=== PATIENT | male | born 1960 | race Two or more races ===

== ENCOUNTER 2024-09-05 08:09 | Emergency (ER) | payer OTHER, SELFPAY ==
[2024-09-05 08:13] VITALS: BP 156/80; PULSE 57; RESP 17; TEMP 37.2; O2SAT 96; BMI 29.9
--- NOTE | 2024-09-05 08:18 | PD.EDANIML ---
ED Animal Bite RME/HPI General Chief Complaint: Animal Bite Stated Complaint: DOG BITE Time Seen by Provider: 09/05/24 08:14 Arrival date/time: 09/05/24 08:09 64-year-old male with medical history significant for hypertension presents to the emergency department today with complaints of dog bite to left lower leg Limitations: no limitations Related Data Home Medications ?Medication ?Instructions ?Recorded ?Confirmed amlodipine 10 mg tablet 10 mg PO QDAY 05/28/21 05/28/21 amoxicillin 500 mg capsule 500 mg PO BID 05/28/21 05/28/21 carvedilol 6.25 mg tablet 6.25 mg PO BID 05/28/21 05/28/21 clarithromycin 500 mg 500 mg PO QDAY 05/28/21 05/28/21 tablet,extended release 24 hr furosemide 20 mg tablet 20 mg PO QDAY 05/28/21 05/28/21 losartan 50 mg tablet 100 mg PO QDAY 05/28/21 05/28/21 omeprazole 40 mg capsule,delayed 40 mg PO QDAY 05/28/21 05/28/21 release Previous Rx's ?Medication ?Instructions ?Recorded amoxicillin 875 mg-potassium 1 tab PO BID 5 days #10 tabs 09/05/24 clavulanate 125 mg tablet ibuprofen 600 mg tablet 600 mg PO Q6H #30 tabs 09/05/24 Allergies Allergy/AdvReac Type Severity Reaction Status Date / Time No Known Allergies Allergy Verified 05/28/21 13:39 Review of Systems Review of Systems Systems Reviewed: All systems reviewed, normal except as documented Constitutional Constitutional: Reports system reviewed and no additional complaints, except as documented, Denies fever(s) and Denies headache(s) Eyes Eyes: Reports system reviewed and no additional complaints, except as documented and Denies blurry vision ENT Ears, Nose, Mouth, and Throat: Reports system reviewed and no additional complaints, except as documented, Denies headache(s), Denies nasal congestion and Denies nasal discharge Cardiovascular Cardiovascular: Reports system reviewed and no additional complaints, except as documented, Denies chest pain and Denies dyspnea Respiratory Respiratory: Reports system reviewed and no additional complaints, except as documented, Denies chest congestion, Denies cough and Denies dyspnea Gastrointestinal Gastrointestinal: Reports system reviewed and no additional complaints, except as documented and Denies abdominal pain Integumentary/Breasts Skin/Breast: Reports system reviewed and no additional complaints, except as documented, Denies rash and Reports wounds (Small dog bite left lower leg) Neurologic Neurologic: Reports system reviewed and no additional complaints, except as documented, Reports as per HPI and Denies headache(s) Past Medical History Past Medical History CARDIAC: Positive Hypertension; Negative Congestive Heart Failure RESPIRATORY: Negative Chronic Obstructive Pulmonary Disease (COPD) GENITOURINARY: Negative Renal Disease ENDOCRINE: Negative Diabetes Mellitus Type 1 or Diabetes Mellitus Type 2 OTHER HISTORY: Positive Cancer (PROSTATE CA) Surgical History SURGICAL: Positive Transurethral Resection Social History SMOKING STATUS: Never smoker ED Exam General Limitations: Present no limitations General appearance: Present alert and in no apparent distress Head Head exam: Present atraumatic Eye Eye exam: Present normal appearance, PERRL and EOMI ENT ENT exam: Present normal exam, normal oropharynx and mucous membranes moist Neck Neck exam: Present normal inspection, full ROM and trachea midline Chest Chest inspection: Present normal inspection and symmetric chest wall rise Respiratory Respiratory exam: Present normal lung sounds bilaterally Cardiovascular Cardiovascular exam: Present regular rate, normal rhythm and normal heart sounds Abdominal Exam Abdominal exam: Present soft and normal bowel sounds Extremities Exam Extremities exam: Present normal inspection and full ROM Back Exam Back exam: Present normal inspection and full ROM Neurological Exam Neurological exam: Present alert, oriented X3 and CN II-XII intact Psychiatric Psychiatric exam: Present normal affect and normal mood Skin Skin exam: Present warm, dry, intact and normal color Course Quality Measures none Orders Category Date Time Status Wound Care NOW Care 09/05/24 08:19 Active Vital Signs Vital signs: Vital Signs Temperature 98.9 F 09/05/24 08:13 Pulse Rate 57 L 09/05/24 08:13 Respiratory Rate 17 09/05/24 08:13 Blood Pressure 156/80 H 09/05/24 08:13 Pulse Oximetry (%) 96 09/05/24 08:13 Oxygen Delivery Method Room Air 09/05/24 08:13 O2 saturation 96% on room air within normal limits Animal Bite MDM Narrative MDM Narrative:: 64-year-old male with medical history significant for hypertension presents to the emergency department today with complaints of dog bite to left lower leg Patient reports tetanus up-to-date On exam patient has small puncture wound left lower extremity wound irrigated copiously dressing applied Patient reports a dog along to someone this was not a stray dog Patient given a prescription for antibiotics Patient discharged home in no distress to follow-up with primary care doctor in the next 24 to 48 hours and for any worsening symptoms to return to the ER immediately Patient data External records reviewed:: [facility] previous records Clinical information provided by:: patient Social determinants that could affect healthcare access:: none Patient has the following chronic illnesses:: See history How is presenting disease/condition affected by chronic disease/condition?: uneffected by Evaluation data The following diagnostics were reviewed and interpreted by me:: other (specify) (N/A) Lab and/or radiology exams considered but not ordered:: Consider not order Interpretation Summary: N/A given Medications / Prescriptions Medications or Prescriptions considered but not ordered:: Given Medication administrations:: Given Consultations Consultation(s) initiated? (list below): No Diagnosis Differential diagnosis animal bite: bite by animal and dog bite Most likely diagnosis given after review of the tests above:: Dog bite Admission Indicated Admission indicated?: not indicated Admission Request Was there a request for admission?: No Disposition Plan Disposition Plan: Discharge Discharge Attestation Discharge Attestation: The patient and all family members were given an opportunity to ask questions and understood the discharge instructions. Discharge instructions specifically effects, indications for sooner follow up or return to the emergency department, and the expected course of current diagnosis. Patient condition: Stable Discharge Plan Plan Patient Disposition: HOME (Self Care) Discharge Disposition comment: Stable Prescriptions/Referrals Prescriptions/Med Rec: New ibuprofen 600 mg tablet 600 mg PO Q6H Qty: 30 0RF amoxicillin-pot clavulanate 875-125 mg tablet 1 tab PO BID 5 Days Qty: 10 0RF No Action losartan 50 mg tablet 100 mg PO QDAY Patient Comments: take 1 tablet by mouth twice a day amoxicillin 500 mg Capsule 500 mg PO BID carvedilol 6.25 mg tablet 6.25 mg PO BID Patient Comments: take 1 tablet by mouth twice a day clarithromycin 500 mg Tablet Extended Release 24 Hr 500 mg PO QDAY amlodipine 10 mg tablet 10 mg PO QDAY Patient Comments: take 1 tablet by mouth once daily furosemide 20 mg tablet 20 mg PO QDAY Patient Comments: take 1 tablet by mouth once daily omeprazole 40 mg Capsule,Delayed Release(Dr/Ec) 40 mg PO QDAY Problem List Clinical Impression: Dog bite Patient/Caregiver Discharge Instructions Education Materials: ED Dog Bite Additional Instructions: Please follow up with your primary care doctor in the next 24-48hrs for any worsening symptoms return here immediately Print Language: Maltese Stand Alone Forms: Deyanira Award Info., Patient Portal Info Letter PA/QUALITY CONTROLLER Supervising Physician PA/QUALITY CONTROLLER Supervising Physician: Dr. keene
== END 2024-09-05 08:37 | disposition home or self-care (01) ==
PROVIDERS: Emergency Provider Family Medicine; PCP Physician Assistant
DX: S81.832A Puncture wound without foreign body, left lower leg, initial encounter (principal); W54.0XXA Bitten by dog, initial encounter
CPT/HCPCS: 99282